=== PATIENT | female | born 1930 | race Caucasian/White ===

== ENCOUNTER 2017-09-06 13:05 | Emergency (ER) | payer MEDICARE, BC ==
--- NOTE | 2017-09-06 13:55 | EDM.PDOC ---
ED HPI GENERAL MEDICAL PROBLEM - General Chief Complaint: General Stated Complaint: FELL WEEK AGO. HANDY AMB Time Seen by Provider: 09/06/17 13:40 Source of Information: Reports: Patient History Limitations: Reports: No Limitations - History of Present Illness INITIAL COMMENTS - FREE TEXT/NARRATIVE: This 87 yo female patient was brought to the ED by [facility] due to pain in her left leg secondary to a fall 1 week ago. The patient reports she has been walking around, but has noticed some increased pain in the left lower extremity. Duration: Week(s): (1), Constant Location: Reports: Lower Extremity, Left Quality: Reports: Ache Severity: Mild Improves with: Reports: None Worsens with: Reports: None Context: Reports: Other Left Leg Pain Score (Numeric/FACES): 2 - Related Data Allergies Allergy/AdvReac Type Severity Reaction Status Date / Time Penicillins Allergy Itching Verified 09/06/17 13:18 [id number] Reductase Allergy Itching Verified 09/06/17 13:18 Inhibitor Sulfa (Sulfonamide Allergy Vomiting Verified 09/06/17 13:18 Antibiotics) Home Meds: Home Meds Acetaminophen [Tylenol Extra Strength] 1,000 mg PO Q6HR 09/06/17 [History] Budesonide/Formoterol Fumarate [Symbicort 160-4.5 Mcg Inhaler] 2 puff INH BID [History] Levothyroxine [Synthroid] 50 mcg PO ACBREAKFAST 09/06/17 [History] Tiotropium [Spiriva Handihaler] 1 puff INH DAILY 09/06/17 [History] Past Medical History HEENT History: Reports: Hard of Hearing, Impaired Vision Other HEENT History: wears glasses, has hearing aide for right side Cardiovascular History: Reports: None Respiratory History: Reports: Asthma Other Gastrointestinal History: b-12 shots Genitourinary History: Reports: None G[employer]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 Musculoskeletal History: Reports: Back Pain, Chronic Neurological History: Reports: None Psychiatric History: Reports: None 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 Hematologic History: Reports: B12 Deficiency Immunologic History: Reports: None Oncologic (Cancer) History: Reports: Colon Dermatologic History: Reports: None - Infectious Disease History Infectious Disease History: Reports: Measles - Past Surgical History Head Surgeries/Procedures: Reports: None HEENT Surgical History: Reports: Tonsillectomy GI Surgical History: Reports: Appendectomy, Cholecystectomy, Colonoscopy Female Surgical History: Reports: Section Other Female Surgeries/Procedures: times 4 Musculoskeletal Surgical History: Reports: Knee Replacement Other Musculoskeletal Surgeries/Procedures:: back fused, arm fused, right knee replacement Other Oncologic Surgeries/Procedures: colon surgury in July 2016 Social & Family History - Tobacco Use Smoking Status *Q: Never Smoker Second Hand Smoke Exposure: No - Caffeine Use Caffeine Use: Reports: Coffee - Recreational Drug Use Recreational Drug Use: No ED ROS GENERAL - Review of Systems Review Of Systems: ROS reveals no pertinent complaints other than HPI. ED EXAM, GENERAL - Physical Exam Exam: See Below Exam Limited By: No Limitations General Appearance: Alert, WD/WN, Mild Distress, Obese Eye Exam: Bilateral Eye: EOMI, Normal Inspection, PERRL Ears: Normal External Exam, Normal Canal, Hearing Grossly Normal, Normal TMs Nose: Normal Inspection, Normal Mucosa, No Blood Throat/Mouth: Normal Inspection, Normal Lips, Normal Teeth, Normal Gums, Normal Oropharynx, Normal Voice, No Airway Compromise Head: Atraumatic, Normocephalic Neck: Normal Inspection, Supple, Non-Tender, Full Range of Motion Respiratory/Chest: No Respiratory Distress, Lungs Clear, Normal Breath Sounds, No Accessory Muscle Use, Chest Non-Tender Cardiovascular: Normal Peripheral Pulses, Regular Rate, Rhythm, No Edema, No Gallop, No JVD, No Murmur, No Rub GI/Abdominal: Normal Bowel Sounds, Soft, Non-Tender, No Organomegaly, No Distention, No Abnormal Bruit, No Mass (Female) Exam: Deferred Rectal (Female) Exam: Deferred Back Exam: Normal Inspection, Full Range of Motion, NT Extremities: Joint Swelling (left knee left ankle left foot) Neurological: Alert, Oriented, CN II-XII Intact, Normal Cognition, Normal Gait, Normal Reflexes, No Motor/Sensory Deficits Psychiatric: Normal Affect, Normal Mood Skin Exam: Other (bruising of the encire left lower leg (knee to foot)) Lymphatic: No Adenopathy Course - Vital Signs Last Recorded V/S: Last Vital Signs Temp 37.0 C 09/06/17 13:18 Pulse 86 09/06/17 13:18 Resp 18 09/06/17 13:18 BP 161/93 H 09/06/17 13:18 Pulse Ox 92 L 09/06/17 13:18 - Orders/Labs/Meds Labs: Laboratory Tests 09/06/17 09/06/17 Range/Units 13:58 13:58 WBC 6.9 (5.0-10.0) 10^3/uL RBC 3.57 L (4.2-5.4) 10^6/uL Hgb 12.6 (12.0-16.0) g/dL Hct 36.8 L (37.0-47.0) % MCV 103.1 H (80-100) fL MCH 35.3 H (27.0-34.0) pg MCHC 34.2 (33.0-35.0) g/dL Plt Count 279 (150-450) 10^3/uL Neut % (Auto) 67.1 (42.2-75.2) % Lymph % (Auto) 19.4 L (20.5-50.1) % Hitchcock % (Auto) 11.3 H (2-8) % Eos % (Auto) 1.6 (1.0-3.0) % Baso % (Auto) 0.6 (0.0-1.0) % Sodium 140 (135-145) mmol/L Potassium 3.9 (3.6-5.0) mmol/L Chloride 106 (101-111) mmol/L Carbon Dioxide 24.0 (21.0-31.0) mmol/L Anion Gap 13.9 BUN 15 (7-18) mg/dL Creatinine 0.9 (0.6-1.3) mg/dL Est Cr Clr Drug Dosing TNP Estimated GFR (MDRD) 60 BUN/Creatinine Ratio 16.66 Glucose 86 (74-105) mg/dL Calcium 9.3 (8.4-10.2) mg/dl Total Bilirubin 1.1 H (0.2-1.0) mg/dL AST 30 (10-42) IU/L ALT 22 (10-60) IU/L Alkaline Phosphatase 61 (42-121) IU/L Total Protein 7.0 (6.7-8.2) g/dl Albumin 3.9 (3.2-5.5) g/dl Globulin 3.1 Albumin/Globulin Ratio 1.26 Departure - Departure Time of Disposition: 14:38 Disposition: Home, Self-Care 01 Condition: Fair Clinical Impression: Left ankle strain Qualifiers: Encounter type: initial encounter Qualified Code(s): S96.912A - Strain of unspecified muscle and tendon at ankle and foot level, left foot, initial encounter Contusion of left leg Qualifiers: Encounter type: initial encounter Qualified Code(s): S80.12XA - Contusion of left lower leg, initial encounter - Discharge Information Instructions: Contusion, [id number] Forms: ED Department Discharge Care Plan Goals: The patient was advised of the examination, lab and x-ray results during the visit. The patient was given an MIKE wrap for compression of her left lower leg. The patient was encouraged to remove the MIKE wrap at night. The patient should rest and elevate her left lower extremity. If the patient has any additional symptoms or concerns, the patient should follow-up with her primary care facility or return to the emergency department.
--- NOTE | 2017-09-06 14:20 | CR ---
Clinical history: 87-year-old female injured in fall (one week ago). Interpretation: 3 views left ankle confirm bimalleolar soft tissue swelling and small ankle joint eff usion. No sign of acute underlying fracture or disruption of the tibiotalar mortise joint. Subtle irregular spur arising off the lateral malleolus distal fibula. Tiny plantar heel spur os calc is. CONCLUSION: Soft tissue swelling. No fracture.
--- NOTE | 2017-09-06 14:22 | CR ---
Clinical history: 87-year-old female injured fall one week ago (ankle sprain). Interpretation: Focal pretibial soft tissue swelling, proximally (hematoma?). No sign of underlying foreign body, long bone fracture tibia/fibula; no left knee or ankle joint disl ocation.
[2017-09-06 14:30] LABS: CHLORIDE,CL 106 mmol/L (101-111); SODIUM,NA 140 mmol/L (135-145)
== END 2017-09-06 14:46 | disposition home or self-care (01) ==
LOC: DL.ED 13:05
DX: S96.912A Strain of unspecified muscle and tendon at ankle and foot level, left foot, initial encounter (principal); S80.12XA Contusion of left lower leg, initial encounter; Z79.899 Other long term (current) drug therapy; Z88.0 Allergy status to penicillin; Z88.2 Allergy status to sulfonamides; Z88.8 Allergy status to other drugs, medicaments and biological substances; W19.XXXA Unspecified fall, initial encounter
CPT/HCPCS: 36415; 73590-LT; 73610-LT; 80053; 85025; 99283; 99284

== ENCOUNTER 2018-01-01 07:03 | Day surgery (SDC) | payer MEDICARE, BC ==
[~2018-01-01 07:03] MED LIST: Dextrose 5%-0.45% NaCl 1,000 ML IV SCH; Midazolam 1 MG/ML 2 ML SDV ONE; Sodium Chloride 0.9% 10 ML Syringe FLUSH PRN; fentaNYL 100 MCG/2 ML SDV ONE
[2018-01-01] MEDS ORDERED: Midazolam 1 MG/ML 2 ML SDV IV ONE ×4 (07:04→08:02)
[2018-01-01] MEDS ORDERED: fentaNYL 100 MCG/2 ML SDV IV ONE ×2 (07:04→07:53)
--- NOTE | 2018-01-01 09:04 | OR ---
DATE: 01/01/2018 PROCEDURES: Total colonoscopy, narrow-band imaging, and cold snare polypectomy. INSTRUMENT USED: CF-H180 AL Olympus video colonoscope. PREMEDICATIONS: Fentanyl 50 mcg intravenous, Versed 2 mg intravenous. Nasal O2 cannula. The procedure was done under pulse oximetry, BP recording, and compliance monitor. INDICATION: The patient with previous right hemicolectomy for cancer. Surveillance colonoscopic examination is done for detection of any polypoid lesions and removal, endoscopic hemostasis therapy if needed. DESCRIPTION OF PROCEDURE: Initial rectal exam was unremarkable. Rigid anoscopy showed small internal hemorrhoids without bleeding from them. The colonoscope was passed with ease up to the area of surgical site. Photographs were taken. No bleeding was noted from any of the visualized areas at the commencement of examination. No stricture. No vascular ectasia. No large isolated ulcerations seen. No evidence of diffuse inflammatory bowel disease in the form of friability, contact bleeding, or ulcerations. Probing the proximal sides of folds and flexures, using adequate distention and clearing of the stool material, withdrawal of the scope was made. Withdrawal time more than 6 minutes. There was moderate amount of fecal material that had to be aspirated. In the proximal descending colon, a 3-mm sized benign-appearing polyp was noted. NBI views were obtained. Cold snare polypectomy was done. The tissue was retrieved and sent for histopathology. No bleeding was noted from any of the visualized areas at the completion of examination. IMPRESSION: 1. Internal hemorrhoids. 2. Diminutive colonic polyp. The patient tolerated the procedure well. [facility] /[id number]
--- NOTE | 2018-01-01 09:34 | LETTER ---
01/01/2018 Juan Carlos Vance MD [facility] [address] [place] [address] RE: GIFTY MCKINNEY : [address] Vance: Ms. Gifty Mckinney had colonoscopic examination done this morning and she tolerated the procedure well. I herewith send a copy of the endoscopy note and photographs for your review. Thank you. Sincerely, [facility] /[id number]
== END 2018-01-01 10:10 | disposition home or self-care (01) ==
LOC: DL.ENDO 07:03
PROVIDERS: ATTEND Internal Medicine Gastroenterology
DX: Z12.11 Encounter for screening for malignant neoplasm of colon (principal); D12.4 Benign neoplasm of descending colon; K64.8 Other hemorrhoids; I10 Essential (primary) hypertension; E03.9 Hypothyroidism, unspecified; E78.5 Hyperlipidemia, unspecified; J45.909 Unspecified asthma, uncomplicated; M19.90 Unspecified osteoarthritis, unspecified site; E66.9 Obesity, unspecified; Z68.32 Body mass index [BMI] 32.0-32.9, adult; Z85.038 Personal history of other malignant neoplasm of large intestine; Z86.010 Personal history of colon polyps; Z80.0 Family history of malignant neoplasm of digestive organs; Z90.49 Acquired absence of other specified parts of digestive tract
CPT/HCPCS: 45385; 88305; J2250; J3010; J7042

== ENCOUNTER 2018-11-22 06:04 | Day surgery (SDC) | payer MEDICARE, BC ==
[2018-11-22] MEDS ORDERED: Midazolam 1 MG/ML 2 ML SDV IV ONE ×4 (06:05→07:39)
[2018-11-22] MEDS ORDERED: fentaNYL 100 MCG/2 ML SDV IV ONE ×3 (06:05→07:25)
--- NOTE | 2018-11-22 15:46 | OR ---
DATE: 11/22/2018 PROCEDURES: Total colonoscopy and multiple polypectomies. INSTRUMENT USED: PCF-H190DL Olympus video colonoscope. PREMEDICATIONS: Fentanyl 100 mcg intravenous, Versed 2.5 mg intravenous. Nasal O2 cannula. The procedure was done under pulse oximetry, BP recording, and screwmaker automatic. INDICATION: The patient with previous right colon cancer resection and positive FIT. Colonoscopic examination was done for detection of any polypoid lesions and removal, endoscopic hemostasis therapy if needed. Initial rectal exam was unremarkable. Rigid anoscopy showed 1 cm sized benign- appearing sessile polyp. DESCRIPTION OF PROCEDURE: The colonoscope was passed with ease. Photograph was taken of the rectum showing sessile benign polyp, piecemeal polypectomy was done. The tissues obtained were retrieved and sent for histopathology. The scope was passed with ease. Few scattered diverticula were noted in the distal left colon. In the sigmoid colon, diminutive benign-appearing polyp was noted, cold snare polypectomy was done, the tissue was retrieved and sent for histopathology. The scope was passed with ease to the cecal area, photographs were taken of the cecal area. No bleeding was noted from any of the visualized areas at the completion of examination. There was some amount of fecal material that had to be aspirated. Bowel preparation was [place] scale 2. No stricture. No vascular ectasia. No large isolated ulcerations seen. No evidence of diffuse inflammatory bowel disease in the form of friability, contact bleeding, or ulcerations. Probing the proximal sides of folds and flexures using adequate distention and clearing up the stool material. Withdrawal of the scope was made. Cecum to rectum time over 6 minutes. No bleeding was noted from any of the visualized areas at the completion of examination. IMPRESSION: 1. Rectosigmoid polyps. 2. Diverticulosis. The patient tolerated the procedure well. [facility] /[id number]
== END 2018-11-22 10:08 | disposition home or self-care (01) ==
LOC: DL.ENDO 06:04
PROVIDERS: ATTEND Internal Medicine Gastroenterology
DX: R19.5 Other fecal abnormalities (principal); D12.8 Benign neoplasm of rectum; K63.5 Polyp of colon; K57.30 Diverticulosis of large intestine without perforation or abscess without bleeding; I10 Essential (primary) hypertension; E66.09 Other obesity due to excess calories; M19.90 Unspecified osteoarthritis, unspecified site; E03.9 Hypothyroidism, unspecified; Z85.038 Personal history of other malignant neoplasm of large intestine; Z87.891 Personal history of nicotine dependence; Z98.890 Other specified postprocedural states; Z90.49 Acquired absence of other specified parts of digestive tract
CPT/HCPCS: 45380; 45385; J2250; J3010; J7042

== ENCOUNTER 2021-10-23 10:20 | Inpatient (IN) | payer MEDICARE, BC ==
[2021-10-23] MEDS ORDERED: methylPREDNISolone Sodium Succinate 125 MG/2 ML SDV IVPUSH ONE (11:06)
[2021-10-23] MEDS ORDERED: Furosemide 100 MG/10 ML SDV IVPUSH ONE (11:07)
[2021-10-23] MEDS: Sodium Chloride 0.9% 10 ML Syringe FLUSH PRN (11:17)
[2021-10-23] MEDS: Albuterol/Ipratropium 3.0-0.5 MG/3 ML Neb Soln NEB ONE ×2 (11:18→11:29)
[2021-10-23 11:38] LABS: CORONAVIRUS COVID-19 NAA NEGATIVE (NEGATIVE); RESPIRATORY SYNCYTIAL VIR NAA NEGATIVE (NEGATIVE)
[2021-10-23 11:46] LABS: ANION GAP 9.7 mEq/L (7-13); PTT,PARTIAL THROMBOPLSTIN TIME 21.4 SEC (22.0-34.0)
[2021-10-23] MEDS ORDERED: traMADol 50 MG Tab PO PRN (14:34)
[2021-10-23] MEDS ORDERED: Albuterol 0.083% 2.5 MG/3 ML Neb Soln INH PRN (14:34)
[2021-10-23] MEDS: Azithromycin 250 MG Tab PO SCH (15:57)
[2021-10-23] MEDS ORDERED: Ondansetron 4 MG/2 ML SDV IVPUSH PRN (17:22)
[2021-10-23] MEDS ORDERED: Docusate Sodium 100 MG Cap PO PRN (17:22)
[2021-10-23] MEDS ORDERED: Acetaminophen 325 MG Tab PO PRN (17:22)
[2021-10-23] MEDS ORDERED: Budesonide 0.5 MG/2 ML Neb Susp NEB SCH (18:00)
[2021-10-23] MEDS: methylPREDNISolone Sodium Succinate 40 MG/1 ML SDV IVPUSH SCH (18:48)
[2021-10-23] MEDS: Budesonide 0.5 MG/2 ML Neb Susp NEB SCH (18:53)
[2021-10-23] MEDS: Albuterol/Ipratropium 3.0-0.5 MG/3 ML Neb Soln INH SCH (18:53)
[2021-10-23] MEDS: Heparin Sodium 5,000 Units/ML Vial SUBCUT SCH (21:58)
[2021-10-23] MEDS: Temazepam 15 MG Cap PO PRN (21:59)
[2021-10-24] MEDS: methylPREDNISolone Sodium Succinate 40 MG/1 ML SDV IVPUSH SCH ×4 (00:38→17:16)
[2021-10-24] MEDS: Heparin Sodium 5,000 Units/ML Vial SUBCUT SCH ×3 (06:04→21:25)
[2021-10-24] MEDS: Levothyroxine 50 MCG Tab PO SCH (06:05)
[2021-10-24] MEDS: Albuterol/Ipratropium 3.0-0.5 MG/3 ML Neb Soln INH SCH ×3 (07:17→18:40)
[2021-10-24] MEDS: Budesonide 0.5 MG/2 ML Neb Susp NEB SCH ×2 (07:17→18:41)
[2021-10-24] MEDS: Losartan 25 MG Tab PO SCH (09:11)
[2021-10-24] MEDS: Azithromycin 250 MG Tab PO SCH (09:12)
[2021-10-24] MEDS: Multivitamin Tab PO SCH (09:12)
[2021-10-24] MEDS: Furosemide 40 MG Tab PO SCH (09:12)
[2021-10-24] MEDS: guaiFENesin 100 MG/5 ML Soln 5 ML UD Cup PO PRN (21:22)
[2021-10-24] MEDS: Temazepam 15 MG Cap PO PRN (21:25)
[2021-10-25] MEDS: methylPREDNISolone Sodium Succinate 40 MG/1 ML SDV IVPUSH SCH ×3 (00:20→12:01)
[2021-10-25] MEDS: Levothyroxine 50 MCG Tab PO SCH (05:39)
[2021-10-25] MEDS: Heparin Sodium 5,000 Units/ML Vial SUBCUT SCH ×2 (05:39→05:43)
[2021-10-25 06:56] LABS: ANION GAP 12.4 mEq/L (7-13)
[2021-10-25] MEDS: Albuterol/Ipratropium 3.0-0.5 MG/3 ML Neb Soln INH SCH ×2 (07:35→13:40)
[2021-10-25] MEDS: Budesonide 0.5 MG/2 ML Neb Susp NEB SCH (07:36)
[2021-10-25] MEDS: Azithromycin 250 MG Tab PO SCH (09:03)
[2021-10-25] MEDS: Losartan 25 MG Tab PO SCH (09:03)
[2021-10-25] MEDS: Sodium Chloride 0.9% 10 ML Syringe FLUSH PRN (09:04)
[2021-10-25] MEDS: Multivitamin Tab PO SCH (09:04)
[2021-10-25] MEDS: Furosemide 40 MG Tab PO SCH (09:04)
[2021-10-25] MEDS: guaiFENesin 100 MG/5 ML Soln 5 ML UD Cup PO PRN (10:01)
== END 2021-10-25 14:15 | DRG 190 ==
LOC: DL.ED 10:20 → DL.MS 13:27
PROVIDERS: ADMIT Internal Medicine; ATTEND Internal Medicine
DX: J44.1 Chronic obstructive pulmonary disease with (acute) exacerbation (principal); R60.9 Edema, unspecified; J96.21 Acute and chronic respiratory failure with hypoxia; J20.8 Acute bronchitis due to other specified organisms; J44.0 Chronic obstructive pulmonary disease with (acute) lower respiratory infection; I10 Essential (primary) hypertension; N18.30 Chronic kidney disease, stage 3 unspecified; E03.9 Hypothyroidism, unspecified; E20.9 Hypoparathyroidism, unspecified; Z20.822 Contact with and (suspected) exposure to COVID-19; Z85.038 Personal history of other malignant neoplasm of large intestine; I12.9 Hypertensive chronic kidney disease with stage 1 through stage 4 chronic kidney disease, or unspecified chronic kidney disease; H91.90 Unspecified hearing loss, unspecified ear; H54.7 Unspecified visual loss; E78.00 Pure hypercholesterolemia, unspecified; Z88.8 Allergy status to other drugs, medicaments and biological substances; M54.9 Dorsalgia, unspecified; Z79.51 Long term (current) use of inhaled steroids; G89.29 Other chronic pain; Z96.651 Presence of right artificial knee joint; E53.8 Deficiency of other specified B group vitamins; J20.9 Acute bronchitis, unspecified; Z88.0 Allergy status to penicillin; Z88.2 Allergy status to sulfonamides; Z79.890 Hormone replacement therapy; Z79.899 Other long term (current) drug therapy; Z90.49 Acquired absence of other specified parts of digestive tract; Z90.710 Acquired absence of both cervix and uterus; Z88.1 Allergy status to other antibiotic agents; Z87.891 Personal history of nicotine dependence
CPT/HCPCS: 0241U; 36415; 71045; 71250; 80048; 80053; 82728; 83605; 83735; 83880; 84484; 85025; 85379; 85610; 85730; 86140; 87040; 93005; 94640; 96374; 96375; 97530; 99285; 93010; A9270-GY; J1644; J1940; J2920; J2930; J7620-GY; U0002